=== PATIENT | female | born 1970 | race Caucasian/White ===

== ENCOUNTER 2019-09-01 08:32 | Day surgery (SDC) | payer OTHER ==
[~2019-09-01] VITALS: Ht 172.7 cm; Wt 105.8 kg
[~2019-09-01 08:32] MED LIST: ACEBUTCAFT; CYAN1000; ESCI10; PSORCON
--- NOTE | 2019-09-01 09:14 | NUR ---
Ambulatory in Day Surgery. Surgical site prepped with 2% Chlorhexidine cloth wipe. History, Chart, Medications and Allergies reviewed before start of procedure. Lungs clear T/O to Auscultation. Patient confirms NPO status and agrees with scheduled surgery. Pre-Op teaching done. Pt verbalizes understanding. Patient States Post-Procedure ride home has been arranged.
[2019-09-01] MEDS ORDERED: DUPIXENT300 MG/21 SC (09:18)
[2019-09-01] MEDS ORDERED: HYDROCHLOROTH12.5 MG PO (09:18)
[2019-09-01] MEDS ORDERED: PROP10 PO (09:18)
[2019-09-01] MEDS ORDERED: Vitamin D2000 UNIT PO (09:19)
[2019-09-01] MEDS ORDERED: CENTRUM SILVER1 EAC2 PO (09:19)
[2019-09-01] MEDS ORDERED: FAMO10 PO (09:19)
[2019-09-01] MEDS ORDERED: OMEP20ER PO (09:19)
--- NOTE | 2019-09-01 12:34 | NUR ---
TOLERTATING SPRITE. ONLY C/O OF PAIN WHEN ASKED, AND STATES HER ABDOMEN FEELS "TENDER". WILL GIVE ORAL ANALGESIC AFTER PATIENT HAS DRANK MORE PO FLUIDS.
--- NOTE | 2019-09-01 13:23 | NUR ---
TOLERATING SPRITE AND CRACKERS. DENIES NAUSEA. Discharge instructions reviewed with patient. Patient verbalizes understanding. Copy given to patient to take home. Gait steady. Patient States Post-Procedure ride home has been arranged with her .
--- NOTE | 2019-09-01 13:36 | NUR ---
2X2 GAUZE DRESSING UNDER OCCLUSIVE CLEAR DRESSING CLEAN AND INTACT WITH NO VISIBLE DRAINAGE, SWELLING OR BRUISING NOTED.
== END 2019-09-01 13:36 | disposition home or self-care (01) ==
LOC: ORSCMMR 08:32 → ORD 10:00 → ORSCMMR 13:36
PROVIDERS: Surgery
PROC: 0FT44ZZ Resection of Gallbladder, Percutaneous Endoscopic Approach (ICD-10-PCS; principal; 2019-09-01 10:00)
PROC: BF121ZZ Fluoroscopy of Gallbladder using Low Osmolar Contrast (ICD-10-PCS; principal; 2019-09-01 10:00)
DX: K80.10 Calculus of gallbladder with chronic cholecystitis without obstruction (principal)
CPT/HCPCS: 74300; 88304; A9270-GY; C1729; J0295; J1100; J1885; J2250; J2405; J2704; J3010; J7120

== ENCOUNTER 2023-01-13 10:32 | Emergency (ER) | payer OTHER ==
[~2023-01-13] VITALS: Ht 172.7 cm; Wt 101.6 kg
[~2023-01-13 10:32] MED LIST changes: +CENTRUM SILVER1 EAC2 PO; +DUPIXENT300 MG/21 SC; +FAMO10 PO; +HYDROCHLOROTH12.5 MG PO; +OMEP20ER PO; +PROP10 PO; +Vitamin D2000 UNIT PO
[2023-01-13 10:39] VITALS: BP 109/50
[2023-01-13 11:35] LABS: Hematocrit 35.4 % (33.0-51.0); Hemoglobin 12.1 g/dL (11.5-16.0); Mean Corpuscular HGB 28.9 pg (26.0-34.0); Mean Corpuscular HGB Conc 34.2 g/dL (31.5-36.5); Mean Corpuscular Volume 85 fL (80-100); Mean Platelet Volume 9.2 fL (9.1-12.4); Platelet Count 245 K/mm3 (150-400); RDW Standard Deviation 42.9 fL (35.1-46.3); Red Blood Cell Count 4.18 M/mm3 (3.80-5.20); White Blood Cell Count 4.93 K/mm3 (4.00-11.30)
[2023-01-13 11:53] LABS: Albumin, Blood 3.4 g/dL (3.4-5.0); Albumin/Globulin Ratio 0.8 (0.8-1.8); Bilirubin, Total 1.9 mg/dL (0.1-1.0); Calcium, Blood 8.7 mg/dL (8.5-10.1); Creatinine, Blood 0.9 mg/dL (0.40-1.00); Potassium, Blood 2.9 mmol/L (3.5-5.5); Total Protein, Blood 7.4 g/dL (6.4-8.2)
[2023-01-13 12:12] LABS: Influenza A, PCR NEGATIVE (NEGATIVE); Influenza B, PCR NEGATIVE (NEGATIVE); Resp Syncytial Virus, PCR NEGATIVE (NEGATIVE); SARS-Cov-2 (COVID-19) PCR, MMC NEGATIVE (NEGATIVE)
[2023-01-13 12:37] LABS: Source, Urine Clean Catch
[2023-01-13 12:45] LABS: BASOPHILS PERCENT MAN 0 % (0-2); EOSINOPHILS PERCENT MAN 0 % (0-6); LYMPHOCYTES ABSOLUTE MAN 1.67 K/mm3 (0.84-5.20); LYMPHOCYTES PERCENT MAN 34 % (21-46); MONOCYTES ABSOLUTE MAN 0.24 K/mm3 (0.16-1.47); MONOCYTES PERCENT MAN 5 % (4-13); SEG NEUTROPHILS PERCENT MAN 61 % (41-73); TOTAL CELLS COUNTED 100
[2023-01-13 12:54] LABS: Blood, Urine Neg (Neg); Color, Urine Yellow (P-Yellow); Glucose Qualitative, Urine Neg (Neg); Ketones, Urine 3+ (Neg); Leukocyte Esterase, Urine Neg (Neg); Nitrite, Urine Neg (Neg); Protein, Urine 1+ (Neg); Urobilinogen, Urine 3+ (Normal)
[2023-01-13 14:02] LABS: Bilirubin, Urine 1+ (Neg)
[2023-01-13 14:03] LABS: Appearance, Urine Hazy (Clear)
[2023-01-13 14:05] LABS: Amorphous Light (0-Heavy); Bacteria Many /hpf; Mucus Mod (0-Heavy); Red Blood Cells, Urine 0-2 /hpf (0-2); Squamous Epithelial Cells Few /hpf (Few); Transitional Epithelial Cells Rare /hpf (0-Rare)
[2023-01-13] MEDS ORDERED: Macrobid 100 M100 MG PO (14:48)
== END 2023-01-13 15:06 | disposition home or self-care (01) ==
LOC: ER 10:32
PROVIDERS: Emergency Medicine
DX: N39.0 Urinary tract infection, site not specified (principal); R53.1 Weakness; Z88.1 Allergy status to other antibiotic agents; Z79.899 Other long term (current) drug therapy; Z20.822 Contact with and (suspected) exposure to COVID-19
CPT/HCPCS: 0241U; 80053; 81001; 83690; 84145; 84703; 85025; 85651; 86140; 87086; 96360; 99284-25; A9270; J7030

== ENCOUNTER 2023-04-20 09:58 | Day surgery (SDC) | payer OTHER ==
[~2023-04-20] VITALS: Ht 172.7 cm; Wt 101.7 kg
[~2023-04-20 09:58] MED LIST changes: +EPINEPhrine HCl 1 MG/ML 1ML Amp ONE; +Lactated Ringer's 1,000 ML IV ONE; +Macrobid 100 M100 MG PO; +Ropivacaine 0.5% HCl/Pf 5 MG/ML 20ML VIAL ONE
[2023-04-20] MEDS ORDERED: Lactated Ringer's 1,000 ML IV ONE ×2 (10:06→10:30)
[2023-04-20] MEDS ORDERED: VEOZAH45 MG PO (10:19)
[2023-04-20] MEDS ORDERED: CeFAZolin Sodium 2,000 MG VIAL ONE (10:52)
[2023-04-20] MEDS ORDERED: NS 50 ML IV ONE (10:52)
[2023-04-20] MEDS ORDERED: FentaNYL Citrate 50 MCG/ML 2 ML Injection IV ONE (11:12)
[2023-04-20] MEDS ORDERED: propofoL 20 ML IV ONE (11:12)
[2023-04-20] MEDS ORDERED: Ondansetron HCl 2 MG / ML 2ML Vial IV ONE (11:37)
[2023-04-20] MEDS ORDERED: Ketorolac Tromethamine 30mg Vial IV ONE (11:37)
[2023-04-20] MEDS ORDERED: Dexamethasone Sod Phos 10 MG/ML 1ML VIAL IV ONE (11:37)
[2023-04-20] MEDS ORDERED: TraMADol HCl 50 MG Tab PO ONE (13:05)
--- NOTE | 2023-04-20 13:11 | NUR ---
04/20/23 1311 ARIN ELDRIDGE AT BEDSIDE. DOING VERY WELL.
[2023-04-20 13:55] VITALS: BP 108/89
== END 2023-04-20 13:50 | disposition home or self-care (01) ==
LOC: ORSCSDS 09:58
PROVIDERS: Orthopaedic Surgery
PROC: 0SBD4ZZ Excision of Left Knee Joint, Percutaneous Endoscopic Approach (ICD-10-PCS; principal; 2023-04-20 11:30)
DX: S83.242A Other tear of medial meniscus, current injury, left knee, initial encounter (principal); I10 Essential (primary) hypertension; K21.9 Gastro-esophageal reflux disease without esophagitis; Z79.899 Other long term (current) drug therapy
CPT/HCPCS: A9270; J0171; J0690; J1100; J1885; J2405; J2704; J2795; J3010; J7120